=== PATIENT | female | born 1990 | race Caucasian/White ===

== ENCOUNTER → 2017-04-17 | Outpatient (CLI) | payer OTHER ==
[2017-04-17 16:57] LABS: ADD MAN DIFF? NO
[2017-04-17 17:10] LABS: BASO # 0.1 x10^3/uL (0.0-0.2); BASO % 1 % (0-3); EOS # 0.1 x10^3/uL (0.0-0.7); EOS % 1 % (0-3); HEMATOCRIT 40.8 % (36.0-47.0); HEMOGLOBIN 13.7 g/dL (12.0-15.5); LYMPH # 2.7 x10^3/uL (1.0-4.8); LYMPH % 20 % (24-48); MEAN CORPUSCULAR HEMOGLOBIN 30 pg (25-35); MEAN CORPUSCULAR HGB CONC 34 g/dL (31-37); MEAN CORPUSCULAR VOLUME 90 fL (79-100); MONO % 7 % (0-9); NEUT # 10.1 x10^3uL (1.8-7.7); NEUT % 72 % (31-73); PLATELET COUNT 303 x10^3/uL (140-400); RED BLOOD COUNT 4.54 x10^6/uL (3.50-5.40); RED CELL DISTRIBUTION WIDTH 13.5 % (11.5-14.5); WHITE BLOOD COUNT 14.1 x10^3/uL (4.0-11.0)
== END | disposition home or self-care (01) ==
LOC: LAB 16:40
DX: O20.0 Threatened abortion (principal)
CPT/HCPCS: 36415; 84144; 84702; 85025

== ENCOUNTER → 2017-04-23 | Outpatient (CLI) | payer OTHER | END | disposition home or self-care (01) | LOC: US 11:47 | DX: O20.0 Threatened abortion (principal); N83.202 Unspecified ovarian cyst, left side | CPT/HCPCS: 76801; 76817 ==

== ENCOUNTER → 2017-08-01 | Outpatient (CLI) | payer OTHER | END | disposition home or self-care (01) | LOC: KCIC US 13:47 | DX: Z34.92 Encounter for supervision of normal pregnancy, unspecified, second trimester (principal); Z3A.21 21 weeks gestation of pregnancy | CPT/HCPCS: 76805 ==

== ENCOUNTER → 2017-09-30 | Outpatient (CLI) | payer OTHER ==
[2017-09-30 10:08] LABS: GLUCOSE 90 mg/dL (70-99)
[2017-09-30 13:35] LABS: GLUCOSE 50 mg/dL (70-99)
== END | disposition home or self-care (01) ==
LOC: LAB 09:43
DX: Z34.83 Encounter for supervision of other normal pregnancy, third trimester (principal); Z3A.29 29 weeks gestation of pregnancy
CPT/HCPCS: 36415; 82947; 82950

== ENCOUNTER 2017-10-30 15:32 | Observation (INO) | payer OTHER ==
[2014-07-06 16:38] VITALS: BP 110/72
[~2017-10-30 15:32] MED LIST: PNV1TABL25 PO
--- NOTE | 2017-10-30 17:57 | RAD ---
Indication: Fell on the right side. TECHNIQUE: Ultrasound OB more than or equal to 14 weeks. COMPARISON: 08/01/2017 FINDINGS: The cervix measures 5.7 cm in length and is closed. Placenta is anterior in location. Single intrauterine is seen. The biparietal diameter measures 8.85 cm corresponding to gestation age of 35 weeks 5 days. Head Circumference measures 33.44 cm corresponding to gestation age of 38 weeks 2 days. The abdominal circumference measures 30.76 cm corresponding to gestation age of 34 weeks 5 days. Bladder, kidneys are seen. The femoral length measures 6.63 cm corresponding to gestation age of 34 weeks 1 day. Amniotic fluid index measures 24.3 cm which is high. Cardiac activity is seen in the rate of 126 bpm. IMPRESSION: 1. Single viable intrauterine with estimated gestation age of 35 weeks 0 days and due date of 12/04/2017. 2. Amniotic fluid index is high measuring 24.3 cm. Electronically signed by: Arpit Cortez DO (10/30/2017 5:54 PM) [facility]
== END 2017-10-30 18:30 | disposition home or self-care (01) ==
LOC: 3 SO LND 15:32
PROVIDERS: ADMIT Obstetrics & Gynecology; ATTEND Obstetrics & Gynecology
DX: O99.89 Other specified diseases and conditions complicating pregnancy, childbirth and the puerperium (principal); S80.211A Abrasion, right knee, initial encounter; W19.XXXA Unspecified fall, initial encounter; Y93.89 Activity, other specified; Y92.89 Other specified places as the place of occurrence of the external cause; Y99.8 Other external cause status; Z3A.33 33 weeks gestation of pregnancy
CPT/HCPCS: 76805; G0378; G0379

== ENCOUNTER 2017-11-18 10:16 | Observation (INO) | payer OTHER ==
[2014-07-06 16:38] VITALS: BP 110/72
== END 2017-11-18 12:05 | disposition home or self-care (01) ==
LOC: 3 SO LND 10:16
PROVIDERS: ADMIT Obstetrics & Gynecology; ATTEND Obstetrics & Gynecology
DX: Z34.93 Encounter for supervision of normal pregnancy, unspecified, third trimester (principal); Z3A.36 36 weeks gestation of pregnancy
CPT/HCPCS: G0378; G0379; 59025

== ENCOUNTER → 2017-11-18 | Outpatient (CLI) | payer OTHER ==
[2014-07-06 16:38] VITALS: BP 110/72
--- NOTE | 2017-11-18 10:30 | RAD ---
EXAM: biophysical profile. HISTORY: Polyhydramnios. TECHNIQUE: Sonographic imaging of a gravid uterus was performed. COMPARISON: 10/30/2017. FINDINGS: There is a single intrauterine fetus in cephalic presentation with a heart rate of 153 bpm. There is normal body motion, breathing motion and tone and there is a normal pocket of amniotic fluid. This is consistent with a biophysical profile 8/8. There is an anterior placenta without evidence of placenta previa. The abdomen and fluid index is elevated at 25.8 cm. The cervix is closed and measures 4.8 cm in length. The biparietal diameter is 9.46 cm, corresponding with 38 weeks and 3 days and the 97th percentile. The heads are covered 34.36 cm, corresponding with 38 weeks and 6 days and the 83rd percentile. The femoral length is 7.21 cm, corresponding with 37 weeks and 1 day and the 71st percentile. The abdominal circumference is 36.27 cm, corresponding with 40 weeks and 1 day and not within range for a percentile calculation. The estimated weight is 3709 g. This corresponds with the 99th percentile for additional age based on LMP of 36 weeks and 1 day. The estimated gestational age patient combined ultrasound measurements of 38 weeks and 5 days and the KATTY is 11/27/2017. IMPRESSION: 1. Single intrauterine fetus in cephalic presentation with a heart rate of 153 bpm and gestational age based on ultrasound measurements of 38 weeks and 5 days, compared to an estimated gestational age based on LMP of 36 weeks and 1 day. The estimated weight is at the 99th percentile for gestational age based on LMP. 2. Normal biophysical profile of 10/08. 3. Polyhydramnios. The CATE is 25.8, increased compared to a measurement of 24.3 on the study dated 10/30/2017. Electronically signed by: Anika Arevalo MD (11/18/2017 10:27 AM) [place] [id number]
== END | disposition home or self-care (01) ==
LOC: US 09:27
PROVIDERS: ATTEND Obstetrics & Gynecology
DX: O40.3XX0 Polyhydramnios, third trimester, not applicable or unspecified (principal); Z3A.36 36 weeks gestation of pregnancy
CPT/HCPCS: 76819

== ENCOUNTER 2017-11-25 10:25 | Observation (INO) | payer OTHER ==
[2014-07-06 16:38] VITALS: BP 110/72
[2017-11-25] MEDS ORDERED: IV RINGERS,LACTATED 1000ML 1,000 ML IV SCH (12:00)
--- NOTE | 2017-11-25 15:10 | RAD ---
Ultrasound biophysical profile exam, 11/25/2017: HISTORY: Polyhydramnios, large for dates The limited exam of the gravid uterus demonstrates a single fetus in a cephalic orientation. The heart rate is 137 bpm. The measurements suggest a gestational age of approximately 39 weeks. The weight is estimated at 8 pounds and 3 ounces +/- 19 ounces. A full survey was not attempted. The placenta lies anteriorly. The amniotic fluid volume is increased with an CATE of 24. A similar appearance was present on the 11/18/2017 exam. The following biophysical profile scores were obtained: breathing movements-2 motion-2 tone-2 Amniotic fluid volume-2 Total score-8 out of 8 IMPRESSION: 1. Normal ultrasound biophysical profile score of 8 out of 8. 2. Ongoing polyhydramnios. Electronically signed by: Gavin Maya MD (11/25/2017 3:07 PM) [facility]
== END 2017-11-25 14:20 | disposition home or self-care (01) ==
LOC: 3 SO LND 10:25
PROVIDERS: ADMIT Obstetrics & Gynecology; ATTEND Obstetrics & Gynecology
DX: O62.9 Abnormality of forces of labor, unspecified (principal); Z3A.37 37 weeks gestation of pregnancy
CPT/HCPCS: 76819; G0378; G0379

== ENCOUNTER 2017-11-26 00:06 | Observation (INO) | payer OTHER ==
[2014-07-06 16:38] VITALS: BP 110/72
[2017-11-26] MEDS ORDERED: IV RINGERS,LACTATED 1000ML 1,000 ML IV SCH (00:15)
[2017-11-26 00:48] LABS: BILIRUBIN,URINE NEGATIVE (NEG); CLARITY,URINE CLEAR; COLOR,URINE YELLOW; NITRITE,URINE NEGATIVE (NEG); PH,URINE 6.5; PROTEIN,URINE NEGATIVE (NEG-TRACE); UROBILINOGEN,URINE 0.2 mg/dL (0.2 mg/dL)
[2017-11-26 01:00] LABS: AMPHETAMINE/METHAMPHETAMINE NEG (NEG); BARBITURATES NEG (NEG); BENZODIAZEPINES NEG (NEG); CANNABINOIDS NEG (NEG); COCAINE NEG (NEG); METHADONE NEG (NEG); OPIATES NEG (NEG); PHENCYCLIDINE NEG (NEG)
[2017-11-26 01:08] LABS: BACTERIA,URINE FEW /HPF (0-FEW); HYALINE CASTS, URINE FEW /HPF; RBC,URINE OCC /HPF (0-2); SQUAMOUS EPITHELIAL CELL,UR FEW /LPF
== END 2017-11-26 03:54 | disposition home or self-care (01) ==
LOC: 3 SO LND 00:06
PROVIDERS: ADMIT Obstetrics & Gynecology; ATTEND Obstetrics & Gynecology
DX: O62.9 Abnormality of forces of labor, unspecified (principal); Z3A.39 39 weeks gestation of pregnancy; Z79.899 Other long term (current) drug therapy
CPT/HCPCS: 80307; 81001; G0378; G0379; G0479